=== PATIENT | female | born 1960 | race Caucasian/White ===

== ENCOUNTER → 2018-09-13 | Outpatient (CLI) | payer OTHER ==
[2018-09-13 10:16] VITALS: BP 107/56; PULSE 69; TEMP 96.5; BMI 22.6
--- NOTE | 2018-09-13 10:55 | P.HPOB ---
History of Present Illness H&P Date: 09/13/18 Chief Complaint: The patient is here for her routine gynecologic exam and mammogram. This is a 58-year-old with an LMP of 2007. The patient is here to establish with this office. It has been about one year since her last mammogram and pelvic exam. She is without gynecologic complaints and denies any postmenopausal bleeding. Review of Systems Her weight can fluctuate by about 2 pounds. She denies respiratory, cardiac, or G.I. problems. 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 She has no other history of STDs. History of Any Multi-Drug Resistant Organisms: None Reported Past Surgical History: Breast Surgery (Breast biopsy) Additional Past Surgical History / Comment(s): Laparoscopic exam. Past Psychological History: No Psychological Hx Reported Smoking Status: Former smoker (Quit in her 20s.) Past Alcohol Use History: None Reported Past Drug Use History: None Reported Additional History: She has been since 1988. Her has dementia. 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 - Past Family History Father Family Medical History: COPD Additional Family Medical History / Comment(s): Paternal grandfather had diabetes. Mother Additional Family Medical History / Comment(s): Brain aneurysm. Maternal grandmother had breast cancer. Medications and Allergies Home Medications Medication Instructions Recorded Confirmed Type No Known Home Medications 09/13/18 09/13/18 History Allergies Allergy/AdvReac Type Severity Reaction Status Date / Time No Known Allergies Allergy Unverified 09/13/18 10:12 Exam Vital Signs Temp Pulse BP 09/13/18 10:13 96.5 F L 69 107/56 Intake and Output 09/12/18 09/13/18 09/13/18 22:59 06:59 14:59 Other: Weight 52.617 kg Height 5'0", weight 116 pounds, BMI 22.7. This is a well-developed well-nourished white female who is alert and oriented times 3 in no acute distress. HEENT: Within normal limits. NECK: Supple without mass or thyromegaly. CHEST AND LUNGS: Clear to auscultation. HEART: Regular rate and rhythm. BREASTS: Are without mass or discharge. AXILLARY EXAM: Negative for adenopathy. BACK: Negative for CVA tenderness. ABDOMEN: Soft, nontender, without palpable masses. PELVIC EXAM: Normal external genitalia with mild to moderate atrophy. The introitus is small, almost virginal. Cervix and vagina appear normal with mild to moderate atrophy. There is no unusual discharge. There is no evidence of prolapse. The uterus is midposition, nongravid size and nontender. There are no palpable adnexal masses or tenderness. RECTAL EXAM: rectovaginal exam is negative for mass or tenderness and is negative for occult blood. EXTREMITIES: Nontender. IMPRESSION: 1. 58-year-old menopausal female with normal gynecologic exam. 2. History of genital HSV with infrequent outbreaks. She is declining any treatment. PLAN: 1. Pap smear was performed. 2. Self breast awareness was discussed with the patient. 3. Screening mammogram will be done today. 4. I have recommended screening colonoscopy based on her age. She has not had this done in the past. She was given the names of Dr. Davies and Dr. Snyder for this. She states she will look into doing this. 5. I have also recommended that she established with a primary care physician. 6. Osteoporosis prevention was discussed. We will plan on doing a bone density test next year. 7. She will return in one year.
--- NOTE | 2018-09-14 09:17 | MM ---
Reason for exam: screening (asymptomatic). Last mammogram was performed 13 years and 9 months ago. History: Patient is postmenopausal. Family history of breast cancer. Physical Findings: A clinical breast exam by your physician is recommended on an annual basis and results should be correlated with mammographic findings. MG Screening Mammo w CAD Bilateral CC and MLO view(s) were taken. Prior study comparison: July 28, 2017, mammogram, performed at [facility]. December 25, 2004, bilateral diagnostic mammogram. The breast tissue is heterogeneously dense. This may lower the sensitivity of mammography. There is no discrete abnormality. Right post clip redemonstrated. ASSESSMENT: Benign, BI-RAD 2 RECOMMENDATION: Routine screening mammogram of both breasts in 1 year.
== END | disposition home or self-care (01) ==
LOC: WWCWWP 09:31
PROVIDERS: ATTEND Obstetrics & Gynecology
DX: Z12.31 Encounter for screening mammogram for malignant neoplasm of breast (principal)
CPT/HCPCS: 77067

== ENCOUNTER → 2020-10-15 | Outpatient (CLI) | payer OTHER ==
[2020-10-15 10:45] VITALS: BP 111/65; PULSE 68; RESP 16; TEMP 97.6
--- NOTE | 2020-10-15 11:25 | P.HPOB ---
History of Present Illness H&P Date: 10/15/20 Chief Complaint: The patient is here for her routine gynecologic exam and ma mmogram. This is a 60-year-old with an LMP of 2007. The patient states she has had about 2 HSV outbreaks in the past year and believes these were stress related. She is otherwise without gynecologic complaints. Review of Systems She has lost about 7 pounds over the past 2 years. She denies respiratory, cardiac, or GI problems. 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 She has no other history of STDs. History of Any Multi-Drug Resistant Organisms: None Reported Past Surgical History: Breast Surgery Additional Past Surgical History / Comment(s): Laparoscopic exam. Breast biopsy. Past Psychological History: No Psychological Hx Reported Smoking Status: Former smoker Past Alcohol Use History: None Reported Additional Past Alcohol Use History / Comment(s): Quit smoking in her 20s. Past Drug Use History: None Reported - Past Family History Father Family Medical History: COPD Additional Family Medical History / Comment(s): Paternal grandfather had diabetes. Mother Additional Family Medical History / Comment(s): Brain aneurysm. Maternal grandmother had breast cancer. Medications and Allergies Home Medications Medication Instructions Recorded Confirmed Type No Known Home Medications 09/13/18 10/15/20 History Allergies Allergy/AdvReac Type Severity Reaction Status Date / Time No Known Allergies Allergy Unverified 10/15/20 10:38 Exam Vital Signs Temp Pulse Resp BP Pulse Ox 10/15/20 10:39 97.6 F 68 16 111/65 100 Intake and Output 10/14/20 10/15/20 10/15/20 22:59 06:59 14:59 Other: Weight 49.442 kg Height 5 foot 1 inch, weight 109 pounds, BMI 20.6. This is a well-developed well-nourished white female who is alert and oriented times 3 in no acute distress. HEENT: Within normal limits. NECK: Supple without mass or thyromegaly. CHEST AND LUNGS: Clear to auscultation. HEART: Regular rate and rhythm. BREASTS: Are without mass or discharge. AXILLARY EXAM: Negative for adenopathy. BACK: Negative for CVA tenderness. ABDOMEN: Soft, nontender, without palpable masses. PELVIC EXAM: Normal external genitalia with mild atrophy. The introitus is near virginal. Cervix and vagina appear normal with mild atrophy. There is no unusual discharge. There is no evidence of prolapse. The uterus is midposition, nongravid size and nontender. There are no palpable adnexal masses or tenderness. RECTAL EXAM: negative for mass or tenderness and is negative for occult blood. EXTREMITIES: Nontender. IMPRESSION: 1. 60-year-old menopausal female with normal gynecologic exam. 2. Infrequent HSV genital outbreaks which seem to be related to stress. PLAN: 1. Pap smear cotest was performed. 2. Self breast awareness was discussed with the patient. 3. Screening mammogram will be done today. 4. Osteoporosis prevention was discussed. I have stressed the importance of adequate calcium, vitamin D and regular exercise. Recommended amounts of calcium and vitamin D were also discussed. Bone density baseline testing will be done today. 5. She previously had declined episodic treatment for HSV outbreaks. She now states she would like a prescription for Valtrex to use episodically. At first sign of an outbreak, she will take Valtrex 500 mg by mouth twice a day 3 days. The electronic prescription will be [facility] to [facility]. 6. She was advised to return in one year for her annual well woman exam.
--- NOTE | 2020-10-15 16:39 | BD ---
EXAMINATION TYPE: Axial Bone Density DATE OF EXAM: 10/15/2020 COMPARISON: NONE CLINICAL HISTORY: Height: 5 FT 1 IN Weight: 109 FRAX RISK QUESTIONS: Alcohol (3 or more units per day): NO Family History (Parent hip fracture): NO Glucocorticoids (More than 3mos): NO (Ex: prednisone, prednisolone, methylprednisolone, dexamethasone, and hydrocortisone). History of Fracture in Adulthood: NO Secondary Osteoporosis: 1. Type 1 Diabetes: NO 2. Hyperthyroidism: NO 3. Menopause before 45: NO 4. Malnutrition: NO 5. Chronic liver disease: NO Rheumatoid Arthritis: NO Current Tobacco Use: NO RISK FACTORS HISTORY OF: Family History of Osteoporosis: NO Active: YES Diet low in dairy products/other sources of calcium: NO Postmenopausal woman: UNSURE AFTER 45 SHE BELIEVES Take estrogen and/or progesterone medications: NONE Lost more than 2 inches in height since high school: NO MEDICATIONS: Additional Medications: NONE Additional History: EXAM MEASUREMENTS: Bone mineral densitometry was performed using the [employer] System. Bone mineral density as measured about the Lumbar spine is: ----- L1-L4(G/cm2): 0.935 T Score Values are as follows: ----- L2: -2.4 ----- L3: -2.0 ----- L4: -1.3 ----- L1-L4: -2.0 BASELINE Bone mineral density about the R hip (g/cm2): 0.716 Bone mineral density about the L hip (g/cm2): 0.689 T Score values are as follows: -----R Neck: -2.3 -----L Neck: -2.5 -----R Total: -2.0 -----L Total: -2.2 BASELINE IMPRESSION: Osteoporosis (T Score less than -2.5). There is increased fracture risk and therapy is usually indicated based on age. Re-Screen 1-2 years. NOTE: T-SCORE=SD OF THE YOUNG ADULT MEAN.
--- NOTE | 2020-10-16 09:18 | MM ---
Reason for exam: screening (asymptomatic). Last mammogram was performed 2 years and 1 month ago. History: Patient is postmenopausal. Family history of breast cancer. Physical Findings: A clinical breast exam by your physician is recommended on an annual basis and results should be correlated with mammographic findings. MG Screening Mammo w CAD Bilateral CC and MLO view(s) were taken. Prior study comparison: September 13, 2018, bilateral MG screening mammo w CAD. July 28, 2017, mammogram, performed at [facility]. The breast tissue is heterogeneously dense. This may lower the sensitivity of mammography. No significant changes when compared with prior studies. ASSESSMENT: Benign, BI-RAD 2 RECOMMENDATION: Routine screening mammogram of both breasts in 1 year.
--- NOTE | 2020-10-22 17:14 | P.PN ---
Progress Note - Text Progress Note Date: 10/22/20 OUTPATIENT FOLLOW-UP NOTE TEST(S)/RESULTS: Test results from 10/15/2020 include negative Pap smear co- Test, benign mammogram and bone density testing showing osteoporosis. METHOD OF NOTIFICATION: Patient was notified by phone. PATIENT COMMENTS: The patient is interested in taking medication for osteoporosis. DIAGNOSIS: Negative Pap smear co-test, benign mammogram and osteoporosis. DISCUSSION: I have stressed the importance of getting adequate calcium, vitamin D and regular exercise. She states she is trying to do all of these things now. We have discussed the increased risk for bone fracture and we have discussed pros and cons of using medication for osteoporosis. I have recommended starting Fosamax. We have discussed pros and cons including decreasing risk for bone fracture as well as possible increased risk for esophageal ulceration, especially if taken incorrectly, and osteonecrosis of the jaw if she has jaw or extensive oral surgery. PLAN: Information on osteoporosis and Fosamax will be sent to the patient. In order slip for blood tests including creatinine and serum calcium will also be sent to the patient. If she is interested in proceeding with Fosamax, she will have the blood test drawn and if the blood tests are normal, we can proceed with prescribing Fosamax.
== END | disposition home or self-care (01) ==
LOC: WWCWWP 10:26
PROVIDERS: ATTEND Obstetrics & Gynecology
DX: Z12.31 Encounter for screening mammogram for malignant neoplasm of breast (principal); M81.0 Age-related osteoporosis without current pathological fracture; M85.88 Other specified disorders of bone density and structure, other site
CPT/HCPCS: 77067; 77080

== ENCOUNTER → 2020-11-20 | Outpatient (CLI) | payer OTHER ==
[2020-11-20 20:58] LABS: African American GFR (CKD) 92.2 (60.0-200.0); Calcium 10.1 mg/dL (8.7-10.3); Non-African American GFR(CKD) 79.6 (60.0-200.0)
== END | disposition home or self-care (01) ==
LOC: LABWHC1 11:04
PROVIDERS: ATTEND Obstetrics & Gynecology
DX: M81.0 Age-related osteoporosis without current pathological fracture (principal)
CPT/HCPCS: 36415; 82310; 82565

== ENCOUNTER → 2022-03-03 | Outpatient (CLI) | payer OTHER ==
--- NOTE | 2022-03-04 09:46 | MM ---
Reason for exam: screening (asymptomatic). Last mammogram was performed 1 year and 5 months ago. History: Patient is postmenopausal. Family history of breast cancer. Physical Findings: A clinical breast exam by your physician is recommended on an annual basis and results should be correlated with mammographic findings. MG Screening Mammo w CAD Bilateral CC and MLO view(s) were taken. Prior study comparison: October 15, 2020, bilateral MG screening mammo w CAD. September 13, 2018, bilateral MG screening mammo w CAD. The breast tissue is heterogeneously dense. This may lower the sensitivity of mammography. Asymmetric breast tissue in the left breast, unchanged from 2018. Surgical clip right axilla redemonstrated. ASSESSMENT: Benign, BI-RAD 2 RECOMMENDATION: Routine screening mammogram of both breasts in 1 year.
== END | disposition home or self-care (01) ==
LOC: RADMAMWWP 10:24
PROVIDERS: ATTEND Obstetrics & Gynecology
DX: Z12.31 Encounter for screening mammogram for malignant neoplasm of breast (principal); Z78.0 Asymptomatic menopausal state; Z80.3 Family history of malignant neoplasm of breast
CPT/HCPCS: 77067

== ENCOUNTER → 2022-03-17 | Outpatient (CLI) | payer OTHER ==
[2022-03-17 11:37] VITALS: BP 108/71; PULSE 75; RESP 17; TEMP 97.9
--- NOTE | 2022-03-17 12:15 | P.HPOB ---
History of Present Illness H&P Date: 03/17/22 Chief Complaint: The patient is here for her routine gynecologic exam. This is a 61-year-old 0-1 with an LMP of 2007. The patient has had infrequent HSV outbreaks and has infrequently needed the Valtrex prescription. She is otherwise without gynecologic complaints. She is doing well with the Fosamax which she started for osteoporosis in November 2020. She has been under a lot of stress related to caring for her with dementia. Review of Systems The patient has gained 6 pounds over the last year. She denies respiratory, cardiac, or G.I. problems. She has been under lots of stress related to her 's dementia. 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 She has no other history of STDs. History of Any Multi-Drug Resistant Organisms: None Reported Past Surgical History: Breast Surgery Additional Past Surgical History / Comment(s): Laparoscopic exam. Breast biopsy. Past Psychological History: No Psychological Hx Reported Smoking Status: Former smoker Past Alcohol Use History: None Reported Additional Past Alcohol Use History / Comment(s): Quit smoking in her 20s. Past Drug Use History: None Reported Additional History: She is . Her has dementia. She works at [employer]. - Past Family History Father Family Medical History: COPD Additional Family Medical History / Comment(s): Paternal grandfather had diabetes. Mother Additional Family Medical History / Comment(s): Brain aneurysm. Maternal grandmother had breast cancer. Medications and Allergies Home Medications Medication Instructions Recorded Confirmed Type valACYclovir [Valtrex] 500 mg PO BID #12 tab 10/15/20 03/17/22 Rx Alendronate Sodium 70 mg PO WEEKLY #12 tab 11/27/20 03/17/22 Rx Allergies Allergy/AdvReac Type Severity Reaction Status Date / Time No Known Allergies Allergy Unverified 03/17/22 11:20 Exam Vital Signs Temp Pulse Resp BP Pulse Ox 03/17/22 11:21 97.9 F 75 17 108/71 100 Intake and Output 03/16/22 03/17/22 03/17/22 22:59 06:59 14:59 Other: Weight 52.163 kg Height 5 feet 0 inches, weight 115 pounds, BMI 22.5. This is a well-developed well-nourished white female who is alert and oriented times 3 in no acute distress. HEENT: Within normal limits. NECK: Supple without mass or thyromegaly. CHEST AND LUNGS: Clear to auscultation. HEART: Regular rate and rhythm. BREASTS: Are without mass or discharge. AXILLARY EXAM: Negative for adenopathy. BACK: Negative for CVA tenderness. ABDOMEN: Soft, nontender, without palpable masses. PELVIC EXAM: Normal external genitalia with mild to moderate atrophy. The introitus is small allowing only a small speculum or single digit for exam. Cervix and vagina appear normal with mild to moderate atrophy. There is no unusual discharge. There is no evidence of prolapse. The uterus is midposition, nongravid size and nontender. There are no palpable adnexal masses or tenderness. RECTAL EXAM: negative for mass or tenderness and is negative for occult blood. EXTREMITIES: Nontender. IMPRESSION: 1. 61-year-old menopausal female with normal gynecologic exam. 2. History of infrequent genital HSV outbreaks. 3. Osteoporosis doing well on Fosamax since November 2020. PLAN: 1. Pap smear was deferred since she had a negative Pap smear cotest on 10/15/2020. 2. Self breast awareness was discussed with the patient. We have also discussed symptoms associated with inflammatory breast cancer. 3. Screening mammogram was done on 03/03/2022 and was benign. 4. Osteoporosis management was discussed. I have stressed the importance of adequate calcium, vitamin D and regular exercise. Recommended amounts of calcium and vitamin D were also discussed. Continue Fosamax weekly. The electronic prescription will be sent to [facility]. 5. Valtrex 500 mg twice a day 3 days which will be started at the onset of HSV symptoms. [facility]. 6. She has received a Covid vaccination. 7. She declines seeing a counselor or manager social responsibility regarding her stress. 8. She was advised to return in one year for her annual well woman exam.
== END ==
LOC: WWCWWP 11:11
PROVIDERS: ATTEND Obstetrics & Gynecology
DX: Z01.419 Encounter for gynecological examination (general) (routine) without abnormal findings (principal); M81.0 Age-related osteoporosis without current pathological fracture; M19.90 Unspecified osteoarthritis, unspecified site; Z87.891 Personal history of nicotine dependence; Z78.0 Asymptomatic menopausal state; Z87.42 Personal history of other diseases of the female genital tract

== ENCOUNTER → 2023-04-20 | Outpatient (CLI) | payer OTHER ==
--- NOTE | 2023-03-09 16:46 | P.PN ---
Progress Note - Text Progress Note Date: 03/09/23 I spoke with the patient by phone on 03/09/2023. She has an upcoming appointment on 04/20/2023. She is requesting more Valtrex. She has been taking this episodically in the form of Valtrex 500 mg by mouth twice a day 3 days which she starts at the onset of symptoms. Her prescription from last year is . She has recently been having more outbreaks associated with increased stress related to her 's medical issues. We will change her to Valtrex 500 mg by mouth daily for suppressive therapy and this will be for the time being during her increased stress. The electronic prescription was sent to [facility]. They're to dispense 60 and she will take 1 by mouth daily. There are no refills. We will reevaluate the situation at her well woman examination on 04/20/2023.
[2023-04-20 14:06] VITALS: BP 117/76; PULSE 72; RESP 16; TEMP 98
--- NOTE | 2023-04-20 16:06 | P.HPOB ---
History of Present Illness H&P Date: 04/20/23 Chief Complaint: The patient is here for her routine gynecologic exam. This is a 62-year-old 021 with an LMP of 2007. The patient was under large amounts of stress because of her 's this year. She was having more HSV outbreaks and started using the Valtrex daily for suppression. She has noticed some puffiness in the groin regions and is wondering if this is related to enlarged lymph nodes from the HSV outbreaks. She is otherwise without gynecologic complaints and denies any postmenopausal bleeding. Review of Systems The patient's weight has been stable over the last year. She denies respiratory, cardiac, or G.I. problems. Past Medical History Past Medical History: Osteoarthritis (OA) Additional Past Medical History / Comment(s): Back problems. 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 She has no other history of STDs. History of Any Multi-Drug Resistant Organisms: None Reported Past Surgical History: Breast Surgery Additional Past Surgical History / Comment(s): Laparoscopic exam. Breast biopsy. Past Psychological History: No Psychological Hx Reported Smoking Status: Former smoker Past Alcohol Use History: None Reported Additional Past Alcohol Use History / Comment(s): Quit smoking in her 20s. Past Drug Use History: None Reported Additional History: She is a since 2022. She works part-time at [employer]. - Past Family History Father Family Medical History: COPD Additional Family Medical History / Comment(s): Paternal grandfather had diabetes. Mother Additional Family Medical History / Comment(s): Brain aneurysm. Maternal grandmother had breast cancer. Medications and Allergies Home Medications Medication Instructions Recorded Confirmed Type Alendronate Sodium 70 mg PO WEEKLY #12 tab 03/17/22 04/20/23 Rx valACYclovir HCL [Valtrex] 500 mg PO DAILY #60 tablet 03/09/23 Rx Allergies Allergy/AdvReac Type Severity Reaction Status Date / Time No Known Allergies Allergy Unverified 04/20/23 14:02 Exam Vital Signs Temp Pulse Resp BP Pulse Ox 04/20/23 14:02 98 F 72 16 117/76 99 Intake and Output 04/20/23 04/20/23 04/20/23 06:59 14:59 22:59 Other: Weight 53.07 kg Height 5 feet 0 inches, weight 117 pounds, BMI 22.8. This is a well-developed well-nourished white female who is alert and oriented times 3 in no acute distress. HEENT: Within normal limits. NECK: Supple without mass or thyromegaly. CHEST AND LUNGS: Clear to auscultation. HEART: Regular rate and rhythm. BREASTS: Are without mass or discharge. AXILLARY EXAM: Negative for adenopathy. BACK: Negative for CVA tenderness. ABDOMEN: Soft, nontender, without palpable masses. PELVIC EXAM: Normal external genitalia with mild atrophy. The groin areas without palpable mass or adenopathy. The tissue in the groin is soft without abnormalities and no evidence of mass or hernia. Cervix and vagina appear normal with mild to moderate atrophy. There is no unusual discharge. There is no evidence of prolapse. The uterus is midposition, nongravid size and nontender. There are no palpable adnexal masses or tenderness. RECTAL EXAM: Rectovaginal exam is negative for mass or tenderness and is negative for occult blood. EXTREMITIES: Nontender. IMPRESSION: 1. 62-year-old menopausal female with normal gynecologic exam. 2. History of recurrent HSV genital outbreaks with an increase in the frequency related to her 's recent . 3. No evidence of groin adenopathy or hernia. 4. History of osteoporosis doing well on Fosamax since November 2020. PLAN: 1. Pap smear was deferred since she had a negative Pap smear cotest on 10/15/2020. 2. Self breast awareness was discussed with the patient. We have also discussed symptoms associated with inflammatory breast cancer. 3. Screening mammogram is scheduled for 05/18/2023. The order slip was given to the patient for this. 4. She will continue on daily Valtrex at this time and as the stress in her life decreases, she will wean off of this. She can then use Valtrex episodically. I have discussed how to take it episodically when she does make this change. The electronic prescription will be sent to [email or web address]. 5. Osteoporosis management was discussed. I have stressed the importance of adequate calcium, vitamin D and regular exercise. Recommended amounts of calcium and vitamin D were also discussed. The electronic prescription for alendronate weekly will be sent to [facility]. 6. Colorectal cancer screening was discussed with the patient. I have recommended that she establish with a primary care provider and then she can have colorectal cancer screening arranged through the PCP. 7. She was advised to return in one year for her annual well woman exam.
== END ==
LOC: WWCWWP 13:48
PROVIDERS: ATTEND Obstetrics & Gynecology
DX: Z01.419 Encounter for gynecological examination (general) (routine) without abnormal findings (principal); N95.1 Menopausal and female climacteric states; B00.9 Herpesviral infection, unspecified; M19.90 Unspecified osteoarthritis, unspecified site; M81.0 Age-related osteoporosis without current pathological fracture; Z12.31 Encounter for screening mammogram for malignant neoplasm of breast; Z80.3 Family history of malignant neoplasm of breast; Z87.891 Personal history of nicotine dependence

== ENCOUNTER → 2023-05-18 | Outpatient (CLI) | payer OTHER ==
--- NOTE | 2023-05-19 10:25 | MM ---
Reason for Exam: Screening (asymptomatic). Last mammogram was performed 1 year(s) and 3 month(s) ago. Patient History: Menarche at age 14. First Full-Term at age 24. Postmenopausal. Maternal grandmother had breast cancer, age 65. Paternal grandmother had breast cancer, age 90. Risk Values: Aliza 5 year model risk: 1.6%. NCI Lifetime model risk: 6.8%. Prior Study Comparison: 09/13/2018 Bilateral Screening Mammogram, [facility]. 10/15/2020 Bilateral Screening Mammogram, [facility]. 03/03/2022 Bilateral Screening Mammogram, [facility]. Tissue Density: The breast tissue is heterogeneously dense. This may lower the sensitivity of mammography. Findings: Analyzed By CAD. Pattern appears symmetrical and stable. No significant interval change is evident. Surgical clip is within the right breast No suspicious groups of microcalcifications, spiculated or lobular masses, architectural distortion or other secondary signs of malignancy are mammographically apparent. Overall Assessment: Benign, BI-RAD 2 Management: Screening Mammogram of both breasts in 1 year. A negative mammogram report should not preclude additional follow up of suspicious palpable abnormalities. Patient should continue monthly self breast exam. A clinical breast exam by your physician is recommended on an annual basis and results should be correlated with mammographic findings. Electronically signed and approved by: Patrick Stein D.O. Radiologis
== END | disposition home or self-care (01) ==
LOC: RADMAMWWP 11:10
PROVIDERS: ATTEND Obstetrics & Gynecology
DX: Z12.31 Encounter for screening mammogram for malignant neoplasm of breast (principal); Z78.0 Asymptomatic menopausal state; Z80.3 Family history of malignant neoplasm of breast
CPT/HCPCS: 77067

== ENCOUNTER → 2024-05-30 | Outpatient (CLI) | payer OTHER ==
[2024-05-30 09:43] VITALS: BP 100/67; PULSE 90; RESP 17; TEMP 98
--- NOTE | 2024-05-30 10:19 | P.HPOB ---
History of Present Illness H&P Date: 05/30/24 Chief Complaint: The patient is here for her routine gynecologic exam. This is a 63-year-old -0-2-1 with an LMP of 2007. The patient states she had some HSV outbreaks around the time when her last year. After that, she has not had outbreaks. She is without gynecologic complaints. Review of Systems The patient's weight has been stable over the last year. She denies respiratory, cardiac, or G.I. problems. Past Medical History Past Medical History: Osteoarthritis (OA) Additional Past Medical History / Comment(s): Back problems. 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 She has no other history of STDs. History of Any Multi-Drug Resistant Organisms: None Reported Past Surgical History: Breast Surgery Additional Past Surgical History / Comment(s): Laparoscopic exam. Breast biopsy. Past Psychological History: No Psychological Hx Reported Smoking Status: Former smoker Past Alcohol Use History: None Reported Additional Past Alcohol Use History / Comment(s): Quit smoking in her 20s. Past Drug Use History: None Reported Additional History: She is a since 2022. She works part-time at [employer] and also watches her grandchildren during the week. - Past Family History Father Family Medical History: COPD Additional Family Medical History / Comment(s): Paternal grandfather had diabetes. Mother Additional Family Medical History / Comment(s): Brain aneurysm. Maternal grandmother had breast cancer. Medications and Allergies Home Medications Medication Instructions Recorded Confirmed Type Alendronate Sodium 70 mg PO WEEKLY #12 tab 04/20/23 05/30/24 Rx valACYclovir HCL [Valtrex] 500 mg PO DAILY #60 tablet 04/20/23 05/30/24 Rx Allergies Allergy/AdvReac Type Severity Reaction Status Date / Time No Known Allergies Allergy Unverified 05/30/24 09:23 Exam Vital Signs Temp Pulse Resp BP Pulse Ox 05/30/24 09:24 98 F 90 17 100/67 98 Intake and Output 05/29/24 05/30/24 05/30/24 22:59 06:59 14:59 Other: Weight 53.524 kg Height 5 feet 0 inches, weight 118 pounds, BMI 23.0. This is a well-developed well-nourished white female who is alert and oriented times 3 in no acute distress. HEENT: Within normal limits. NECK: Supple without mass or thyromegaly. CHEST AND LUNGS: Clear to auscultation. HEART: Regular rate and rhythm. BREASTS: Are without mass or discharge. AXILLARY EXAM: Negative for adenopathy. BACK: Negative for CVA tenderness. ABDOMEN: Soft, nontender, without palpable masses. PELVIC EXAM: Normal external genitalia with mild atrophy. Cervix and vagina appear normal with mild atrophy. There is no unusual discharge. The introitus is small and allows the small speculum only and only smallest digit could be used for the bimanual examination. There is no evidence of prolapse. The uterus is midposition, nongravid size and nontender. There are no palpable adnexal masses or tenderness. RECTAL EXAM: negative for mass or tenderness and is negative for occult blood. EXTREMITIES: Nontender. IMPRESSION: 1. 63-year-old menopausal female with normal gynecologic exam. 2. History of osteoporosis on Fosamax for 3 years. 3. History of HSV with no outbreaks during the last 6 months, but did have outbreaks about 1 year ago when her . PLAN: 1. Pap smear was deferred since she had a negative Pap smear cotest on 10/15/2020. 2. Self breast awareness was discussed with the patient. We have also discussed symptoms associated with inflammatory breast cancer. 3. Screening mammogram is scheduled for 07/06/2024 and the order slip was given to the patient for this 4. Osteoporosis management was discussed. I have stressed the importance of adequate calcium, vitamin D and regular exercise. Recommended amounts of calcium and vitamin D were also discussed. I recommended that she repeat the bone density test and the order slip was given to the patient for this. Will plan to continue Fosamax for total of 5 years. The electronic prescription will be sent to [email or web address] 5. She was advised to return in one year for her annual well woman exam. She states she will establish with a PCP and follow-up with the PCP for colorectal cancer screening.
== END ==
LOC: WWCWWP 09:03
PROVIDERS: ATTEND Obstetrics & Gynecology
DX: Z12.31 Encounter for screening mammogram for malignant neoplasm of breast (principal); M81.0 Age-related osteoporosis without current pathological fracture; Z78.0 Asymptomatic menopausal state; Z80.3 Family history of malignant neoplasm of breast; Z86.19 Personal history of other infectious and parasitic diseases; Z87.891 Personal history of nicotine dependence

== ENCOUNTER → 2024-07-06 | Outpatient (CLI) | payer OTHER ==
--- NOTE | 2024-07-11 14:27 | MM ---
Reason for Exam: Screening (asymptomatic). Last mammogram was performed 1 year(s) and 1 month(s) ago. Patient History: Menarche at age 14. First Full-Term at age 24. Postmenopausal. Maternal grandmother had breast cancer, age 65. Paternal grandmother had breast cancer, age 90. Risk Values: Aliza 5 year model risk: 1.6%. NCI Lifetime model risk: 6.6%. Prior Study Comparison: 10/15/2020 Bilateral Screening Mammogram, [facility]. 03/03/2022 Bilateral Screening Mammogram, [facility]. 05/18/2023 Bilateral MG screening mammo w CAD, [facility]. Tissue Density: The breasts are heterogeneously dense, which may obscure small masses. Findings: Analyzed By CAD. Right breast surgical clips. Right breast: There is no suspicious group of microcalcifications or new suspicious mass. Left breast: There is no suspicious group of microcalcifications or new suspicious mass. Overall Assessment: Benign, BI-RAD 2 Management: Screening Mammogram of both breasts in [address] [facility] will attempt to contact patient to return for supplemental views and ultrasound if indicated. Patient should continue monthly self-breast exams. A clinical breast exam by your physician is recommended on an annual basis. This exam should not preclude additional follow-up of suspicious palpable abnormalities. Note on Aliza scores and lifetime risk: 1. A Aliza score greater than 3% is considered moderate risk. If this is the case, consider specialist referral to assess eligibility for a risk reducing agent. 2. If overall lifetime risk for the development of breast cancer is 20% or higher, the patient may qualify for future screening with alternating mammogram and breast MRI. Electronically signed and approved by: Rachid Salazar DO
== END | disposition home or self-care (01) ==
LOC: RADMAMWWP 10:35
PROVIDERS: ATTEND Obstetrics & Gynecology
DX: Z12.31 Encounter for screening mammogram for malignant neoplasm of breast
CPT/HCPCS: 77067

== ENCOUNTER → 2024-10-25 | Outpatient (CLI) | payer MEDICARE, OTHER ==
[2024-10-25 12:42] VITALS: BP 144/80; PULSE 77; RESP 17; TEMP 98.1
--- NOTE | 2024-10-25 13:48 | P.PN ---
Progress Note - Text Progress Note Date: 10/25/24 Chief Complaint: Swollen labia and red-tinged discharge x 6 days HPI: This is a 64-year-old -0-2-1 with an LMP of 2007. The patient states that about 6 days ago she started noticing slight discharge and swollen labia. The discharge had a red tinge. She thought this may be a herpes outbreak and started some Valtrex that she had. She also started noticing hemorrhoid discomfort and thought it was related to eating blueberries which seems to do this to her. When she looks at the anus, there was a moderate amount of irritation around the anus. She denies any thick discharge or odor. She has not been sexually active. She has not had recent herpes outbreaks. The stress from her 's has gradually improved. She denies sitting in hot tubs or pools. She has noticed a right lymph node swelling which she tends to get with her herpes outbreaks. ROS: She has gained about 6 pounds over the past 5 months. She denies respiratory or cardiac problems. GI: She has been more gassy, but denies diarrhea or constipation. PE: Blood pressure: 144/80, Height: 5 feet 0 inches, Weight: 124 pounds, Temperature: 98.1, Pulse: 77. Pulse oximeter 96%. This is a well developed, well nourished, white female who is alert and orientedx3, in no acute distress. External genitalia reveals a right labial ulceration between the right labia minora and right labia majora. This area has some redness around it and is also moist. When touched with a Q-tip she confirms this is the area she typically notices her herpes outbreaks. The Q-tip did have a small amount of pink blood on it after touching this area. There is also perianal erythema which is symmetric without ulceration or excoriation. The vagina reveals no blood or unusual discharge or odor. Impression: 1. 64-year-old menopausal female with an acute genital HSV outbreak on the right labia. This ulcerated lesion is not scabbed over and has a small amount of blood. 2. Perianal inflammation possibly secondary to GI sensitivity to eating blueberries blueberries which tends to aggravate her hemorrhoids and perianal area 3. Possible postmenopausal bleeding. This small amount of blood may also have been from the active genital herpes lesion. 4. Differential diagnosis will also include Chloé vaginitis with vulvar and perianal irritation and less likely, bacterial vaginosis. Also less likely, uterine postmenopausal bleeding. Plan: 1. Affirm vaginitis panel has been obtained from the vagina. 2. The patient will be treated with Valtrex 500 mg p.o. twice daily x 3 days. She will also be given a prescription for Kenalog 0.1% cream which she will apply to the perianal area of irritation twice daily as needed. These prescriptions will be sent to [facility] in [place]. 3. The patient will be scheduled for a pelvic ultrasound to check for endometrial thickness. The order slip was given to the patient. Because of the very small introitus, vaginal probe ultrasound may not be possible. She states she will do it if necessary. 4. I have reassured the patient that I believe the small blood was most likely from the herpes lesion and not from uterine bleeding, but we will still do the ultrasound to rule that out. 5. She was instructed to avoid over washing with soap as well as avoid rubbing and scratching the perianal area. She will avoid eating blueberries. Time spent with the patient: 25 minutes
== END ==
LOC: WWCWWP 12:09
PROVIDERS: ATTEND Obstetrics & Gynecology
DX: N76.89 Other specified inflammation of vagina and vulva (principal); A60.09 Herpesviral infection of other urogenital tract; Z78.0 Asymptomatic menopausal state; Z87.891 Personal history of nicotine dependence

== ENCOUNTER → 2025-01-04 | Outpatient (CLI) | payer MEDICARE, OTHER ==
--- NOTE | 2025-01-04 13:48 | US ---
EXAMINATION TYPE: US pelvic complete DATE OF EXAM: 01/04/2025 COMPARISON: NONE CLINICAL INDICATION: Female, 64 years old with history of N95.0POSTMENOPAUSAL BLEEDING; Hx HIV infect ion - flare up in october with 2 weeks of heavy bleeding TECHNIQUE: Transabdominal (TA). Transabdominal grayscale sonographic images of the pelvis were acquired. Transvaginal sonographic im ages were not medically necessary Doppler imaging: Not performed. FINDINGS: Date of LMP: Early menopause - lmp unknown EXAM MEASUREMENTS: Uterus: 6.2 x 2.9 x 4.2 cm Endometrial Stripe: 0.2 cm Right Ovary: 1.6 x 1.1 x 2.0 cm Left Ovary: 2.2 x 1.5 x 1.5 cm 1. Uterus: Anteverted wnl 2. Endometrium: wnl 3. Right Ovary: wnl 4. Left Ovary: wnl 5. Bilateral Adnexa: wnl 6. Posterior cul-de-sac: wnl Urinary bladder is sonolucent. Posterior wall is normal. IMPRESSION: 1. Unremarkable pelvic ultrasound [facility], , 01/04/2025 1:46 PM
== END | disposition home or self-care (01) ==
LOC: RADUSWWP 10:00
PROVIDERS: ATTEND Obstetrics & Gynecology
DX: Z21 Asymptomatic human immunodeficiency virus [HIV] infection status (principal); N95.0 Postmenopausal bleeding
CPT/HCPCS: 76856

== ENCOUNTER 2025-01-26 09:39 | Day surgery (SDC) | payer MEDICARE, OTHER ==
[2025-01-25 09:36] VITALS: BMI 23.2
[~2025-01-26 09:39] MED LIST: LIDOCAINE 1% (10MG/ML) FOR IV START INTRADERMA PRN
[2025-01-26 10:15] VITALS: TEMP 97.7
[2025-01-26] MEDS: LACTATED RINGERS 1,000 ML IV SCH (10:20)
[2025-01-26] MEDS: IV FLUID CONTINUATION 1,000 ML IV ONE ×2 (10:20→12:20)
[2025-01-26] MEDS: ONDANSETRON 4 MG/2 ML VIAL IVP STA (10:24)
[2025-01-26] MEDS ORDERED: PROPOFOL 10 MG/ML 20 ML VIAL IV ONE (11:07)
--- NOTE | 2025-01-26 11:21 | P.PCN ---
Date of Procedure: 01/26/25 Procedure(s) Performed: BRIEF HISTORY: Patient is a 64-year-old pleasant white female scheduled for an elective colonoscopy as a part of screening for colon cancer PROCEDURE PERFORMED: Colonoscopy. PREOPERATIVE DIAGNOSIS: Screening for colon cancer. IV sedation per Anesthesia. PROCEDURE: After informed consent was obtained, the patient, was brought into the endoscopy unit. IV sedation was administered by Anesthesia under continuous monitoring. Digital rectal examination was normal. Initially the Olympus CF-160 flexible video colonoscope was then inserted in the rectum, gradually advanced into the cecum without any difficulty. Careful examination was performed as the scope was gradually being withdrawn. Ileocecal valve and the appendiceal orifice were visualized and appeared normal. Prep was excellent. Mucosa of the cecum, ascending colon, transverse colon, descending colon, sigmoid colon, and rectum appeared normal. Retroflexion was performed in the rectum and no lesions were seen. The patient tolerated the procedure well. IMPRESSION: Normal-appearing colon from rectum to cecum with no evidence of colorectal neoplasia. RECOMMENDATIONS: Findings of this examination were discussed with the patient as well as the family.. She was advised to have repeat screening colonoscopy in 10 years
[2025-01-26 11:26] VITALS: RESP 16
[2025-01-26] MEDS: KETOROLAC 15 MG/ML 1 ML VIAL IVP STA (12:33)
[2025-01-26 12:52] VITALS: BP 99/64; PULSE 64
[2025-01-26] MEDS: SIMETHICONE 80 MG CHEWABLE PO STA (13:12)
== END 2025-01-26 14:14 | disposition home or self-care (01) ==
LOC: ORWHC2ENDO 09:39
PROVIDERS: ATTEND Internal Medicine Gastroenterology
DX: Z12.11 Encounter for screening for malignant neoplasm of colon (principal); M19.90 Unspecified osteoarthritis, unspecified site; Z87.891 Personal history of nicotine dependence; Z79.899 Other long term (current) drug therapy
CPT/HCPCS: J2405; J1885; J2704; G0121